=== PATIENT | female | born 1980 | race Caucasian/White ===

== ENCOUNTER 2017-08-05 16:28 | Emergency (ER) | payer OTHER ==
[~2017-08-05] VITALS: Ht 167.6 cm; Wt 83.9 kg
[2017-08-05] MEDS ORDERED: ASPIR 8181 MG (16:49)
[2017-08-05] MEDS ORDERED: LISINOPRIL10 MG (16:49)
== END 2017-08-05 23:21 | disposition home or self-care (01) ==
LOC: ER 16:28
DX: G44.209 Tension-type headache, unspecified, not intractable (principal)

== ENCOUNTER 2019-08-22 19:32 | Emergency (ER) | payer OTHER ==
[~2019-08-22] VITALS: Ht 167.6 cm; Wt 82.6 kg
[~2019-08-22 19:32] MED LIST: ASPIR 8181 MG; LISINOPRIL10 MG
== END 2019-08-22 22:37 | disposition home or self-care (01) ==
LOC: ER 19:32
DX: B34.9 Viral infection, unspecified (principal)